=== PATIENT | female | born 1930 | race Caucasian/White ===

== ENCOUNTER 2017-07-20 21:01 | Inpatient (IN) | payer OTHER ==
[~2017-07-20] VITALS: Ht 162.6 cm; Wt 57.5 kg
[~2017-07-20 21:01] MED LIST: ARICEPT10 MG PO; ARTIFICIAL TEAR15 M1 BOTH EYES; BUSPAR5 MG PO; BUSPIRONE HCL5 MG PO; CALCIUM 600 +1 EA17 PO; EFFEXOR50 MG PO; MIRTAZAPINE7.5 MG PO; NAMENDA10 MG PO; REMERON15 MG PO; TRAZODONE HCL50 MG PO; TYLENOL REGULA325 MG PO; VITAMIN B-12500 MC5 SL
[2017-07-20 22:18] LABS: HEMOGLOBIN 13.3 G/DL (11.9-15.5); MCH 32.6 PG (29.0-34.0); MCV 93.1 FL (83-99); PLATELET COUNT 177 K/uL (156-360); RBC DIS.WIDTH-SD 47.8 % (39-53); RED BLOOD COUNT 4.08 M/uL (3.80-5.20); WHITE BLOOD COUNT 10.9 K/uL (4.1-10.2)
[2017-07-20 22:27] LABS: INTER. NORMALIZED RATIO 1.2
[2017-07-20 22:30] LABS: CHLORIDE 111 mEq/L (99-109); POTASSIUM 3.9 mEq/L (3.7-5.4); PTT 25.6 SEC (25-37); SODIUM 141 mEq/L (136-147)
[2017-07-20 22:31] LABS: GLUCOSE 132 mg/dL (70-99)
[2017-07-20] MEDS ORDERED: MILK OF MAGN PO (22:34)
[2017-07-20 22:35] LABS: CREATININE 0.8 mg/dL (0.6-1.3); GFR ESTIMATE (CALCULATED) > 59 mL/min/
[2017-07-20] MEDS ORDERED: DULCOLAX10 MG PR (22:35)
[2017-07-20 22:36] LABS: UREA NITROGEN (BUN) 17 mg/dL (9-23)
[2017-07-20] MEDS ORDERED: FLEET ENEMA EX230 ML PR (22:36)
[2017-07-21 00:44] VITALS: BP 159/72
[2017-07-21 03:52] VITALS: BP 135/84
[2017-07-21 07:42] VITALS: BP 136/63
[2017-07-21 11:28] VITALS: BP 139/80
[2017-07-21 15:19] VITALS: BP 153/81
[2017-07-21 23:13] VITALS: BP 145/67
[2017-07-22 06:30] LABS: BASOPHIL (%) 0.4 % (0-1); EOSINOPHIL (%) 5.9 % (0-5); EOSINOPHIL COUNT 0.4 K/uL (0-0.3); HEMOGLOBIN 11.9 G/DL (11.9-15.5); IMMATURE GRANULOCYTE (%) 0.4 % (0.0-0.7); LYMPHOCYTE (%) 15.4 % (15-42); LYMPHOCYTE COUNT 1.1 K/uL (1.0-2.8); MCH 31.4 PG (29.0-34.0); MCHC 33.1 G/DL (30.0-36.0); MONOCYTE (%) 10.9 % (3-12); MONOCYTE COUNT 0.8 K/uL (0-0.8); NEUTROPHIL COUNT 4.8 K/uL (1.8-6.4); PLATELET COUNT 165 K/uL (156-360); RBC DIS.WIDTH-CV 14.2 % (11.8-14.6); RBC DIS.WIDTH-SD 49.8 % (39-53); RED BLOOD COUNT 3.79 M/uL (3.80-5.20); WHITE BLOOD COUNT 7.1 K/uL (4.1-10.2)
[2017-07-22 07:05] LABS: ALBUMIN 2.7 G/DL (3.2-4.8); ALKALINE PHOSPHATASE 77 IU/L (3-129); ALT (GPT) 9 IU/L (3-49); AST (GOT) 14 IU/L (2-34); CHLORIDE 111 MEQ/L (99-109); CREATININE 0.7 MG/DL (0.6-1.3); GFR ESTIMATE (CALCULATED) > 59 mL/min/; GLUCOSE 101 mg/dL (70-99); POTASSIUM 3.9 MEQ/L (3.7-5.4); SODIUM 139 MEQ/L (136-147); TOTAL BILIRUBIN 0.7 MG/DL (0.0-1.0); TOTAL PROTEIN 5.4 G/DL (6.4-8.3); UREA NITROGEN (BUN) 14 mg/dL (9-23)
[2017-07-22 08:14] VITALS: BP 140/61
[2017-07-22 16:29] VITALS: BP 138/60
[2017-07-22 23:29] VITALS: BP 136/60
[2017-07-23 07:27] VITALS: BP 136/75
[2017-07-23 16:41] VITALS: BP 122/69
[2017-07-23 23:47] VITALS: BP 153/64
[2017-07-24 08:15] VITALS: BP 138/65
[2017-07-24 15:41] VITALS: BP 126/57
[2017-07-24 23:16] VITALS: BP 136/67
[2017-07-25 04:56] VITALS: BP 134/65
[2017-07-25 08:22] VITALS: BP 159/69
[2017-07-25] MEDS ORDERED: OXYCODONE HCL5 MG PO (09:18)
[2017-07-25] MEDS ORDERED: OXYCONTIN10 MG PO (09:18)
[2017-07-25] MEDS ORDERED: XARELTO10 MG PO (09:20)
== END 2017-07-25 11:40 | DRG 536 ==
LOC: EME 21:01 → EDOF 22:52 → 3EAST 22:52 → ENRESERV 22:55 → 3EAST 07-21 00:05
PROVIDERS: Emergency Medicine; Internal Medicine
DX: S72.001A Fracture of unspecified part of neck of right femur, initial encounter for closed fracture (principal); W18.30XA Fall on same level, unspecified, initial encounter; Y92.129 Unspecified place in nursing home as the place of occurrence of the external cause; G30.9 Alzheimer's disease, unspecified; F02.80 Dementia in other diseases classified elsewhere, unspecified severity, without behavioral disturbance, psychotic disturbance, mood disturbance, and anxiety; F32.9 Major depressive disorder, single episode, unspecified; I10 Essential (primary) hypertension; M81.0 Age-related osteoporosis without current pathological fracture; R13.10 Dysphagia, unspecified; Z51.5 Encounter for palliative care; Z66 Do not resuscitate
CPT/HCPCS: 71045; 73502; 73552; 80048; 80053; 85025; 85027; 85610; 85730; 86850; 86900; 86901; 92610 GN; 93005; 99202; 99281; 99285; A6214; J1650; J2270; J3480; J7042